=== PATIENT | male | born 1960 | race Asian ===

== ENCOUNTER 2025-02-05 20:54 | Inpatient (IN) | payer MEDICARE, OTHER ==
[~2025-02-05] VITALS: Ht 177.8 cm; Wt 68.1 kg
[2025-02-05] MEDS: SODIUM CHLORIDE 0.9% 1,000 ML IV ONE ×2 (21:02→21:03)
[2025-02-05 21:21] LABS: BASOPHILS % 0.5 % (0.0-2.0); EOSINOPHILS % 0.1 % (0.0-5.0); HEMATOCRIT. 36.2 % (42.0-52.0); HEMOGLOBIN. 11.6 g/dL (14.0-18.0); LYMPHOCYTES % 12.9 % (20.0-50.0); MEAN CORPUSCULAR HEMOGLOBIN 30.8 pg (28.0-32.0); MEAN CORPUSCULAR HGB CONC 32.1 g/dL (31.0-37.0); MEAN CORPUSCULAR VOLUME 96.2 fL (80.0-94.0); MEAN PLATELET VOLUME 7.3 fl (7.4-10.4); MONOCYTES % 4.4 % (2.0-8.0); NEUTROPHILS % 82.1 % (40.0-76.0); PLATELET 222 x1000/uL (130-400); RED BLOOD CELL COUNT 3.76 mill/uL (4.7-6.1)
[2025-02-05 21:25] LABS: CHLORIDE 97 mEq/L (98-107); POTASSIUM 4.6 mEq/L (3.5-5.1); SODIUM 130 mEq/L (136-145)
[2025-02-05 21:26] LABS: CALCIUM 8.4 mg/dL (8.7-10.4); CARBON DIOXIDE 23 mEq/L (21-32)
[2025-02-05 21:31] LABS: CREATININE 0.9 mg/dL (0.6-1.3); GLUCOSE 196 mg/dL (70-105); TROPONIN I HIGH SENSITIVITY 5 ng/L (3.0-53); UREA NITROGEN BLOOD 15 mg/dL (9-23)
[2025-02-05 21:33] LABS: ALANINE AMINOTRANSFERASE < 7 IU/L (10-49); ALBUMIN 3.7 g/dL (3.2-4.8); ASPARTATE AMINOTRANSFERASE 16 IU/L (<34); BILIRUBIN DIRECT 0.4 mg/dL (<=3.0); BILIRUBIN TOTAL 1.3 mg/dL (0.1-1.0); PROTEIN TOTAL 6.9 g/dL (6.0-8.3)
[2025-02-05 21:34] LABS: INR 1.1; PROTHROMBIN TIME 11.5 sec (9.6-11.0)
[2025-02-05 22:07] LABS: LACTIC ACID 4.6 mmol/L (0.4-2.0)
[2025-02-05] MEDS: ETOMIDATE 2MG/ML 10ML VIAL IV ONE (22:50)
[2025-02-05] MEDS: SUCCINYLCHOLINE CHLORIDE 200MG/10ML IV ONE (22:51)
[2025-02-05] MEDS ORDERED: MIDAZOLAM HCL 100 MG in DEXT 5% WATER 80 ML IV ONE (23:00)
[2025-02-05] MEDS: MIDAZOLAM HCL 2 MG/2 ML VIAL IV ONE (23:11)
[2025-02-05] MEDS: MIDAZOLAM 100MG/100ML PREMIX IV PRN (23:19)
[2025-02-05] MEDS: PIPERACILLIN/TAZO 3.375G/50ML 50 ML IV ONE (23:20)
[2025-02-05 23:39] VITALS: PULSE 98; RESP 25; O2SAT 100
[2025-02-05] MEDS: VANCOMYCIN 1G PREMIX 200 ML IV ONE (23:54)
[2025-02-06] VITALS (71 sets, daily range): BP systolic 86–131; BP diastolic 57–89; PULSE 52–90; RESP 14–34; TEMP 36.8–37; O2SAT 98–100
[2025-02-06] MEDS ORDERED: FENTANYL 2500MCG/250ML PMX 250 ML IV SCH
[2025-02-06] MEDS ORDERED: DIPHENHYDRAMINE 50MG/ML VIAL IV PRN (00:15)
[2025-02-06] MEDS ORDERED: IPRATROPIUM/ALBUTEROL 0.5-3(2.5)MG/3ML NEB NEB PRN (00:15)
[2025-02-06] MEDS ORDERED: ONDANSETRON HCL 4MG/2ML INJ IV PRN (00:15)
[2025-02-06] MEDS ORDERED: ACETAMINOPHEN 650MG SUPP PR PRN (00:15)
[2025-02-06 00:20] LABS: BG BASE EXCESS -7.9 mmol/L (-2.0-3.0); BG CARBOXYHEMOGLOBIN 1.2 % (0.5-1.5); BG DEOXYHEMOGLOBIN 2.6 % (0.0-5.0); BG FRACTION INSPIRED OXYGEN 100; BG METHEMOGLOBIN 0.2 % (0.5-1.5); BG OXYGEN SATURATION 97.4 % (94.0-98.0); BG PCO2 50.2 mmHg (35.0-48.0); BG PH 7.219 (7.350-7.450); BG PO2 103.1 mmHg (83.0-108.0); BG SAMPLE SITE RIGHT RADIAL; BG TOTAL HEMOGLOBIN 14.6 g/dL (13.5-17.5); BG VENT MODE VENT - AC
[2025-02-06] MEDS ORDERED: DEXTROSE 50% WATER 50ML SYRINGE IV PRN (00:30)
[2025-02-06] MEDS: BLOOD SUGAR DIAGNOSTIC STRIP TEST SCH (00:30)
[2025-02-06] MEDS: IPRATROPIUM/ALBUTEROL 0.5-3(2.5)MG/3ML NEB HHN SCH (01:55)
[2025-02-06] MEDS: SODIUM CHLORIDE 0.9% 1,000 ML IV SCH (02:48)
[2025-02-06] MEDS: PROPOFOL 10MG/ML 100ML 100 ML IV PRN (03:00)
[2025-02-06] MEDS: FENTANYL 2500MCG/250ML PMX 250 ML IV PRN (03:02)
[2025-02-06] MEDS: ACETAMINOPHEN 650MG SUPP PR PRN (03:12)
[2025-02-06] MEDS: CEFTRIAXONE 1GM/50ML 50 ML IV SCH (06:38)
[2025-02-06] MEDS: AZITHROMYCIN 500MG/250ML 250 ML IV SCH (07:52)
[2025-02-06] MEDS ORDERED: NOREPINEPHRINE 8MG/250ML PMX 250 ML IV PRN (08:00)
[2025-02-06] MEDS: INSULIN LISPRO 100 UNITS/ML SUBCUT SCH (08:20)
[2025-02-06 09:14] LABS: BG BASE EXCESS -6.6 mmol/L (-2.0-3.0); BG CARBOXYHEMOGLOBIN 0.3 % (0.5-1.5); BG DEOXYHEMOGLOBIN 0.3 % (0.0-5.0); BG FRACTION INSPIRED OXYGEN 80; BG HCO3 ACT 18.4 mmol/L (21.0-28.0); BG METHEMOGLOBIN 0.3 % (0.5-1.5); BG OXYGEN SATURATION 99.7 % (94.0-98.0); BG OXYHEMOGLOBIN 99.1 % (94.0-98.0); BG PH 7.339 (7.350-7.450); BG PO2 186.1 mmHg (83.0-108.0); BG SAMPLE SITE RIGHT BRACHIAL; BG TOTAL HEMOGLOBIN 10.4 g/dL (13.5-17.5); BG VENT MODE VENT - AC
[2025-02-06] MEDS: PANTOPRAZOLE SODIUM 40 MG/VIAL IV SCH (09:37)
[2025-02-06] MEDS: METHYLPREDNISOLONE SOD SUCC 40MG/ML (ACT-O-VIAL) IV SCH (10:17)
[2025-02-06 12:09] LABS: HEMATOCRIT 34.6 % (42.0-52.0); HEMOGLOBIN 11.3 g/dL (14.0-18.0); MEAN CORPUSCULAR HEMOGLOBIN 31.4 pg (28.0-32.0); MEAN CORPUSCULAR HGB CONC 32.6 g/dL (31.0-37.0); MEAN CORPUSCULAR VOLUME 96.5 fL (80.0-94.0); PLATELET 149 x1000/uL (130-400); RED BLOOD CELL COUNT 3.58 mill/uL (4.7-6.1); RED CELL DISTRIBUTION WIDTH 14.5 % (11.6-14.6)
[2025-02-06 12:21] LABS: CHLORIDE 106 mEq/L (98-107); POTASSIUM 4.8 mEq/L (3.5-5.1); SODIUM 133 mEq/L (136-145)
[2025-02-06 12:22] LABS: CARBON DIOXIDE 19 mEq/L (21-32)
[2025-02-06 12:23] LABS: CALCIUM 7.8 mg/dL (8.7-10.4)
[2025-02-06 12:27] LABS: CREATININE 0.6 mg/dL (0.6-1.3); GLUCOSE 90 mg/dL (70-105)
[2025-02-06 12:28] LABS: ETHANOL BLOOD < 10 mg/dL (<10); UREA NITROGEN BLOOD 8 mg/dL (9-23)
[2025-02-06 12:30] LABS: AMMONIA 22 uMol/L (<32); PHOSPHORUS 2.2 mg/dL (2.5-4.9)
[2025-02-06 16:26] LABS: CLARITY URINE CLEAR (CLEAR); COLOR URINE YELLOW (YELLOW); GLUCOSE URINE NEGATIVE (NEGATIVE); KETONES URINE TRACE (NEGATIVE); LEUKOCYTE ESTERASE URINE NEGATIVE (NEGATIVE); NITRITE URINE NEGATIVE (NEGATIVE); OCCULT BLOOD URINE NEGATIVE (NEGATIVE); PH URINE 6.5 (4.5-8.0); PROTEIN URINE NEGATIVE (NEGATIVE); SPECIFIC GRAVITY URINE 1.012 (1.005-1.030)
[2025-02-06 17:10] LABS: *AMPHETAMINES SCREEN URINE NEGATIVE (NEGATIVE); *BARBITURATES SCREEN URINE NEGATIVE (NEGATIVE); *BENZODIAZEPINES SCREEN URINE PRESUMPTIVE POSITIVE (NEGATIVE); *COCAINE SCREEN URINE NEGATIVE (NEGATIVE); CANNABINOID URINE SCREEN NEGATIVE (NEGATIVE); METHADONE URINE SCREEN NEGATIVE (NEGATIVE); OPIATES URINE SCREEN NEGATIVE (NEGATIVE); PHENCYCLIDINE URINE SCREEN NEGATIVE (NEGATIVE)
[2025-02-06 17:11] LABS: ECSTASY MDMA SCREEN URINE NEGATIVE (NEGATIVE)
[2025-02-06] MEDS ORDERED: METH2.5T MT (17:34)
[2025-02-06] MEDS ORDERED: CARB-32 MT (17:36)
[2025-02-07] VITALS (101 sets, daily range): BP systolic 109–159; BP diastolic 62–97; PULSE 71–107; RESP 13–28; TEMP 36.4–37.8; O2SAT 98–100
[2025-02-07 05:59] LABS: HEMATOCRIT. 33.5 % (42.0-52.0); HEMOGLOBIN. 11.2 g/dL (14.0-18.0); MEAN CORPUSCULAR HEMOGLOBIN 31.6 pg (28.0-32.0); MEAN CORPUSCULAR HGB CONC 33.5 g/dL (31.0-37.0); MEAN CORPUSCULAR VOLUME 94.2 fL (80.0-94.0); MEAN PLATELET VOLUME 7.6 fl (7.4-10.4); PLATELET 186 x1000/uL (130-400); RED BLOOD CELL COUNT 3.55 mill/uL (4.7-6.1); RED CELL DISTRIBUTION WIDTH 14.1 % (11.6-14.6); WHITE BLOOD COUNT 7.4 x1000/uL (4.5-11.0)
[2025-02-07 06:11] LABS: DIFFERENTIAL COMMENT 1
[2025-02-07 06:17] LABS: CHLORIDE 107 mEq/L (98-107); POTASSIUM 3.9 mEq/L (3.5-5.1); SODIUM 135 mEq/L (136-145)
[2025-02-07 06:18] LABS: CALCIUM 8.2 mg/dL (8.7-10.4); CARBON DIOXIDE 20 mEq/L (21-32)
[2025-02-07 06:23] LABS: CREATININE 0.6 mg/dL (0.6-1.3); GLUCOSE 115 mg/dL (70-105); UREA NITROGEN BLOOD 13 mg/dL (9-23)
[2025-02-07] MEDS: LIDOCAINE HCL 1% 10 MG/ML 10ML VIAL ONE (07:38)
[2025-02-07 09:02] LABS: PLATELET ESTIMATE NORMAL
[2025-02-07] MEDS: CEFTRIAXONE 1GM/50ML 50 ML IV SCH (09:21)
[2025-02-07] MEDS: CARBIDOPA/LEVODOPA 25/100MG TABLET PO SCH ×2 (09:21→21:54)
[2025-02-07 09:38] LABS: BG BASE EXCESS -5.9 mmol/L (-2.0-3.0); BG CARBOXYHEMOGLOBIN 1.2 % (0.5-1.5); BG DEOXYHEMOGLOBIN 0.8 % (0.0-5.0); BG FRACTION INSPIRED OXYGEN 40; BG HCO3 ACT 18.4 mmol/L (21.0-28.0); BG METHEMOGLOBIN 0.1 % (0.5-1.5); BG OXYGEN SATURATION 99.2 % (94.0-98.0); BG OXYHEMOGLOBIN 97.9 % (94.0-98.0); BG PCO2 32.3 mmHg (35.0-48.0); BG PH 7.373 (7.350-7.450); BG PO2 133.8 mmHg (83.0-108.0); BG SAMPLE SITE RIGHT RADIAL; BG TOTAL HEMOGLOBIN 12.5 g/dL (13.5-17.5); BG VENT MODE VENT - AC
[2025-02-07] MEDS: AZITHROMYCIN 500MG/250ML 250 ML IV SCH (09:56)
[2025-02-07] MEDS: METRONIDAZOLE 500MG TABLET PO SCH (15:25)
[2025-02-07] MEDS ORDERED: POLYVINYL ALCOHOL OPHTH DROPS 15ML BOTHEYE SCH (21:00)
[2025-02-07] MEDS: BUPROPION HCL 75MG TABLET PO SCH (21:53)
[2025-02-07] MEDS: DICLOFENAC SODIUM 75MG DR TABLET PO SCH (21:54)
[2025-02-07] MEDS: PILOCARPINE HCL 5MG TABLET PO SCH (22:08)
[2025-02-07] MEDS: PREGABALIN 75MG CAPSULE PO SCH (22:16)
[2025-02-08] VITALS (97 sets, daily range): BP systolic 104–158; BP diastolic 58–125; PULSE 63–114; RESP 12–28; TEMP 36.8–37.5; O2SAT 92–100
[2025-02-08] MEDS ORDERED: METHYLPREDNISOLONE SOD SUCC 40MG/ML (ACT-O-VIAL) IV SCH
[2025-02-08] MEDS ORDERED: NITROGLYCERIN OINT 1GM/INCH UDPKT TD SCH
[2025-02-08] MEDS: METHYLPREDNISOLONE SOD SUCC 40MG/ML (ACT-O-VIAL) IV SCH (00:17)
[2025-02-08] MEDS: POLYVINYL ALCOHOL OPHTH DROPS 15ML EACHEYE SCH (00:18)
[2025-02-08] MEDS: NITROGLYCERIN OINT 1GM/INCH UDPKT TD SCH (00:18)
[2025-02-08 01:02] LABS: INR 1.1; PROTHROMBIN TIME 11.9 sec (9.6-11.0)
[2025-02-08 01:08] LABS: CREATINE KINASE 57 IU/L (46-171)
[2025-02-08 06:15] LABS: HEMOGLOBIN. 10.2 g/dL (14.0-18.0); MEAN CORPUSCULAR HEMOGLOBIN 31.8 pg (28.0-32.0); MEAN CORPUSCULAR VOLUME 93.7 fL (80.0-94.0); MEAN PLATELET VOLUME 7.6 fl (7.4-10.4); PLATELET 133 x1000/uL (130-400); RED CELL DISTRIBUTION WIDTH 14.2 % (11.6-14.6); WHITE BLOOD COUNT 7.9 x1000/uL (4.5-11.0)
[2025-02-08 06:24] LABS: CHLORIDE 107 mEq/L (98-107); SODIUM 139 mEq/L (136-145)
[2025-02-08 06:25] LABS: CARBON DIOXIDE 23 mEq/L (21-32)
[2025-02-08 06:30] LABS: CREATININE 0.6 mg/dL (0.6-1.3); GLUCOSE 170 mg/dL (70-105); UREA NITROGEN BLOOD 18 mg/dL (9-23)
[2025-02-08 06:40] LABS: VITAMIN B12 SERUM 727 pg/mL (211-911)
[2025-02-08 06:43] LABS: DIFFERENTIAL COMMENT 1
[2025-02-08 08:56] LABS: BG BASE EXCESS -3.9 mmol/L (-2.0-3.0); BG CARBOXYHEMOGLOBIN 0.2 % (0.5-1.5); BG DEOXYHEMOGLOBIN 0.5 % (0.0-5.0); BG FRACTION INSPIRED OXYGEN 40; BG HCO3 ACT 19.5 mmol/L (21.0-28.0); BG METHEMOGLOBIN 0.3 % (0.5-1.5); BG OXYGEN SATURATION 99.5 % (94.0-98.0); BG PCO2 30.6 mmHg (35.0-48.0); BG PH 7.423 (7.350-7.450); BG PO2 158.1 mmHg (83.0-108.0); BG SAMPLE SITE LEFT RADIAL; BG TOTAL HEMOGLOBIN 12.3 g/dL (13.5-17.5); BG VENT MODE VENT - AC
[2025-02-08] MEDS: METHOTREXATE SODIUM 2 . 5MG TABLET PO SCH (09:01)
[2025-02-08] MEDS: FOLIC ACID 1MG TABLET PO SCH (09:01)
[2025-02-08] MEDS: HYDROXYCHLOROQUINE SULFATE 200MG TABLET PO SCH (09:01)
[2025-02-08 11:25] LABS: PLATELET ESTIMATE NORMAL
[2025-02-08 13:36] LABS: BG BASE EXCESS -5.4 mmol/L (-2.0-3.0); BG CARBOXYHEMOGLOBIN 0.3 % (0.5-1.5); BG FRACTION INSPIRED OXYGEN 40; BG HCO3 ACT 18.3 mmol/L (21.0-28.0); BG METHEMOGLOBIN 0.2 % (0.5-1.5); BG OXYHEMOGLOBIN 98.5 % (94.0-98.0); BG PCO2 29.8 mmHg (35.0-48.0); BG PH 7.405 (7.350-7.450); BG PO2 141.5 mmHg (83.0-108.0); BG SAMPLE SITE RIGHT RADIAL; BG TOTAL HEMOGLOBIN 11.6 g/dL (13.5-17.5); BG TOTAL RESPIRATORY RATE 23 b/min; BG VENT MODE VENT - SIMV
[2025-02-08 15:53] LABS: BG BASE EXCESS -2.1 mmol/L (-2.0-3.0); BG CARBOXYHEMOGLOBIN 0.3 % (0.5-1.5); BG DEOXYHEMOGLOBIN 0.7 % (0.0-5.0); BG FRACTION INSPIRED OXYGEN 40; BG HCO3 ACT 21.4 mmol/L (21.0-28.0); BG METHEMOGLOBIN 0.1 % (0.5-1.5); BG OXYGEN SATURATION 99.3 % (94.0-98.0); BG OXYHEMOGLOBIN 98.9 % (94.0-98.0); BG PCO2 32.5 mmHg (35.0-48.0); BG PH 7.437 (7.350-7.450); BG PO2 171.3 mmHg (83.0-108.0); BG SAMPLE SITE RIGHT RADIAL; BG TOTAL HEMOGLOBIN 10.9 g/dL (13.5-17.5); BG VENT MODE VENT - CPAP
[2025-02-09] VITALS (70 sets, daily range): BP systolic 98–144; BP diastolic 56–126; PULSE 59–109; RESP 12–26; TEMP 36.4–36.9; O2SAT 90–100
[2025-02-09 05:58] LABS: HEMATOCRIT. 31.8 % (42.0-52.0); HEMOGLOBIN. 10.7 g/dL (14.0-18.0); MEAN CORPUSCULAR HEMOGLOBIN 31.5 pg (28.0-32.0); MEAN CORPUSCULAR HGB CONC 33.6 g/dL (31.0-37.0); MEAN CORPUSCULAR VOLUME 93.5 fL (80.0-94.0); MEAN PLATELET VOLUME 7.3 fl (7.4-10.4); PLATELET 145 x1000/uL (130-400); RED CELL DISTRIBUTION WIDTH 13.9 % (11.6-14.6); WHITE BLOOD COUNT 10.5 x1000/uL (4.5-11.0)
[2025-02-09] MEDS: METHYLPREDNISOLONE SOD SUCC 125MG/2ML (ACT-O-VIAL) IV SCH ×2 (06:09→23:55)
[2025-02-09 06:10] LABS: CALCIUM 8.2 mg/dL (8.7-10.4); CARBON DIOXIDE 23 mEq/L (21-32); CHLORIDE 108 mEq/L (98-107); DIFFERENTIAL COMMENT 1; POTASSIUM 3.8 mEq/L (3.5-5.1); SODIUM 142 mEq/L (136-145)
[2025-02-09 06:15] LABS: CREATININE 0.6 mg/dL (0.6-1.3); GLUCOSE 172 mg/dL (70-105)
[2025-02-09 06:16] LABS: UREA NITROGEN BLOOD 20 mg/dL (9-23)
[2025-02-09 09:07] LABS: COMPLEMENT C3 68 mg/dL (82-167); COMPLEMENT C4 11 mg/dL (12-38); G6PD RBC 3.52 x10E6/uL (4.14-5.80)
[2025-02-09 11:18] LABS: PLATELET ESTIMATE NORMAL
[2025-02-09 13:12] LABS: ANTI-JO 1 ABS <0.2 AI (0.0-0.9); SJOGRENS ANTI SS-A 0.3 AI (0.0-0.9); SJOGRENS ANTI SS-B < 0.2 AI (0.0-0.9)
[2025-02-09] MEDS ORDERED: METHYLPREDNISOLONE SOD SUCC 125MG/2ML (ACT-O-VIAL) IV SCH (21:00)
[2025-02-10] VITALS (10 sets, daily range): BP systolic 120–142; BP diastolic 69–83; PULSE 58–94; RESP 16–22; TEMP 36.3–37.5; O2SAT 89–100
[2025-02-10] MEDS: ENOXAPARIN 40MG/0.4ML SYR SUBCUT SCH (08:57)
[2025-02-10 09:09] LABS: G6PD QUANTITATIVE 320 (127-427)
[2025-02-10 13:13] LABS: ACTIN (SMOOTH MUSCLE) ANTIBODY 14 Units (0-19); CYC CITRULLINATED PEP IgG/IgA > 250 units (0-19)
[2025-02-10 15:07] LABS: ATYPICAL P-ANCA <1:20 titer (Neg:<1:20); CYTOPLASMIC C-ANCA <1:20 titer (Neg:<1:20); PERINUCLEAR P-ANCA <1:20 titer (Neg:<1:20)
[2025-02-10 17:11] LABS: ANTI-CARDIOLIPIN AB IGA < 9 APL U/mL (0-11); ANTI-CARDIOLIPIN AB IGG < 9 GPL U/mL (0-14); ANTI-CARDIOLIPIN AB IGM < 9 MPL U/mL (0-12); ANTI-MYELOPEROXIDASE AB < 0.2 units (0.0-0.9); ANTI-PROTEINASE 3 ABS < 0.2 units (0.0-0.9)
[2025-02-11] VITALS (7 sets, daily range): BP systolic 74–148; BP diastolic 65–84; PULSE 68–80; RESP 16–18; TEMP 36.3–37.2; O2SAT 96–100
[2025-02-11] MEDS: CARBIDOPA/LEVODOPA 25/100MG TABLET PO SCH
[2025-02-11 09:11] LABS: ALDOLASE 4.2 U/L (3.3-10.3); ANGIOTENSION CONVERTING ENZYME 34 U/L (14-82)
[2025-02-11] MEDS: PILOCARPINE HCL 5MG TABLET PO SCH (10:37)
[2025-02-15 17:07] LABS: ANA IFA Negative (.)
== END 2025-02-11 21:55 | DRG 871 ==
LOC: ER 20:54 → EDBEDREQ 23:01 → CANRESERV 02-06 03:47 → ENRESERV 02-06 03:47 → MICUNO 02-06 08:34 → EDBD 02-06 08:34 → 8WST 02-09 17:50
PROVIDERS: ADMIT Internal Medicine; ATTEND Internal Medicine
PROC: 0BH17EZ Insertion of Endotracheal Airway into Trachea, Via Natural or Artificial Opening (ICD-10-PCS; principal; 2025-02-05)
PROC: 5A1945Z Respiratory Ventilation, 24-96 Consecutive Hours (ICD-10-PCS; 2025-02-05)
PROC: 02HV33Z Insertion of Infusion Device into Superior Vena Cava, Percutaneous Approach (ICD-10-PCS; 2025-02-07)
PROC: B548ZZA Ultrasonography of Superior Vena Cava, Guidance (ICD-10-PCS; 2025-02-07)
PROC: 4A00X4Z Measurement of Central Nervous Electrical Activity, External Approach (ICD-10-PCS; 2025-02-08)
DX: A41.9 Sepsis, unspecified organism (principal); G92.8 Other toxic encephalopathy; J96.01 Acute respiratory failure with hypoxia; J69.0 Pneumonitis due to inhalation of food and vomit; E87.1 Hypo-osmolality and hyponatremia; E46 Unspecified protein-calorie malnutrition; M31.8 Other specified necrotizing vasculopathies; E87.29 Other acidosis; K56.49 Other impaction of intestine; D68.61 Antiphospholipid syndrome; R65.20 Severe sepsis without septic shock; I48.91 Unspecified atrial fibrillation; R73.9 Hyperglycemia, unspecified; F02.80 Dementia in other diseases classified elsewhere, unspecified severity, without behavioral disturbance, psychotic disturbance, mood disturbance, and anxiety; D53.9 Nutritional anemia, unspecified; I73.00 Raynaud's syndrome without gangrene; D69.6 Thrombocytopenia, unspecified; G20.A1 Parkinson's disease without dyskinesia, without mention of fluctuations; M24.541 Contracture, right hand; M20.032 Swan-neck deformity of left finger(s); M21.072 Valgus deformity, not elsewhere classified, left ankle; M21.071 Valgus deformity, not elsewhere classified, right ankle; M62.81 Muscle weakness (generalized); M35.00 Sjogren syndrome, unspecified; K02.9 Dental caries, unspecified; G31.9 Degenerative disease of nervous system, unspecified; E83.51 Hypocalcemia; T38.0X5A Adverse effect of glucocorticoids and synthetic analogues, initial encounter; Y92.238 Other place in hospital as the place of occurrence of the external cause; M06.4 Inflammatory polyarthropathy; M05.131 Rheumatoid lung disease with rheumatoid arthritis of right wrist; K76.89 Other specified diseases of liver; M60.88 Other myositis, other site; I77.82 Antineutrophilic cytoplasmic antibody [ANCA] vasculitis; Z79.899 Other long term (current) drug therapy; Z68.21 Body mass index [BMI] 21.0-21.9, adult; Z74.01 Bed confinement status; Z78.1 Physical restraint status
CPT/HCPCS: 31500; 31720; 36415; 36573; 36600; 71045; 71250; 73070; 73100; 73120; 73560; 73600; 73718; 74176; 80048; 80076; 80305; 80320; 81003; 82085; 82140; 82164; 82375; 82550; 82595; 82607; 82805; 82955; 82962; 83036; 83520; 83605; 83735; 84100; 84145; 84443; 84484; 85025; 85027; 85041; 85651; 86147; 86160; 86200; 86235; 86256; 86332; 86431; 86480; 87070; 92610; 93005; 93306; 93880; 93970; 94002; 94003; 94070; 94640; 94760; 95816; 97163; 97167; 97530; 97535; 98960; 99291; A4606; A6449; C1725; J0456; J0696; J1650; J1815; J2003; J2250; J2470; J2543; J2704; J2919; J3010; J3370; J7030; J7060; J8610; G0480